=== PATIENT | female | born 1980 ===

== ENCOUNTER 2018-05-11 16:23 | Emergency (ER) | payer SELFPAY ==
[2018-05-11 16:23] VITALS: BMI 36.2
[2018-05-11] MEDS ORDERED: Lidocaine 5% Patch TD STA (16:52)
--- NOTE | 2018-05-11 17:13 | ED PDOC ---
HPI: Back Time Seen by Provider: 05/11/18 16:34 Chief Complaint (Nursing): Lower Extremity Problem/Injury Chief Complaint (Provider): Back pain History Per: Patient History/Exam Limitations: no limitations Onset/Duration Of Symptoms: Days (x8) Current Symptoms Are (Timing): Still Present Quality Of Discomfort: "Pain" Previous Symptoms: None Associated Symptoms: None Additional Complaint(s): Skip Escoto is a 38 year old female, with a past medical history of hypercholesterolemia, HTN and thyroid problems, who presents to the emergency department complaining of a back pain that radiates down the right leg onset for x8 days. Patient states she has difficulty walking due to pain, especially on her right calf and also reports some numbness on her leg. She took Naproxen with no relief of symptoms. She denies doing any heavy lifting, nausea, vomiting, diarrhea, abdominal pain, urinary symptoms, chest pain, shortness of breath, headache, groin numbness or tingling, weakness, trauma or injury. No further medical complaints. No incontinence or constipation. PMD: None provided. Past Medical History Reviewed: Historical Data, Nursing Documentation, Vital Signs Vital Signs: Last Vital Signs Temp 98.6 F 05/11/18 16:28 Pulse 96 H 05/11/18 16:28 Resp 20 05/11/18 16:28 BP 134/90 05/11/18 16:28 Pulse Ox 98 05/11/18 16:28 - Medical History PMH: HTN, Hypercholesterolemia, Hypothyroidism Denies: Chronic Kidney Disease - Surgical History Surgical History: No Surg Hx - Family History Family History: States: Unknown Family Hx - Social History Current smoker - smoking cessation education provided: No Alcohol: Social Drugs: Denies - Immunization History Hx Tetanus Toxoid Vaccination: No Hx Influenza Vaccination: No Hx Pneumococcal Vaccination: No - Home Medications Home Medications: Ambulatory Orders Medication Instructions Recorded Levothyroxine [Levoxyl] 100 mcg PO DAILY 03/02/16 Losartan [Cozaar] 50 mg PO DAILY 01/11/18 Polyethylene Glycol 3350 [Miralax] 17 gm PO DAILY #1 bottle 01/11/18 Diazepam [Valium] 2 mg PO BID PRN #6 tab 05/11/18 Ibuprofen [Motrin] 600 mg PO TID 7 Days tab 05/11/18 Lidocaine 5% [Lidoderm] 1 ea TD DAILY PRN #5 patch 05/11/18 - Allergies Allergies/Adverse Reactions: Allergies Allergy/AdvReac Type Severity Reaction Status Date / Time No Known Allergies Allergy Verified 05/11/18 16:26 Review of Systems ROS Statement: Except As Marked, All Systems Reviewed And Found Negative Constitutional: Negative for: Fever, Chills Cardiovascular: Negative for: Chest Pain Respiratory: Negative for: Shortness of Breath Gastrointestinal: Negative for: Nausea, Vomiting, Diarrhea Genitourinary Female: Negative for: Dysuria, Frequency, Incontinence Musculoskeletal: Positive for: Back Pain (radiates down the right leg), Leg Pain Neurological: Negative for: Weakness, Numbness (groin tingling) Physical Exam - Reviewed Nursing Documentation Reviewed: Yes Vital Signs Reviewed: Yes - Physical Exam Appears: Positive for: No Acute Distress Head Exam: Positive for: ATRAUMATIC, NORMAL INSPECTION, NORMOCEPHALIC Skin: Positive for: Normal Color, Warm, Dry Eye Exam: Positive for: Normal appearance, EOMI, PERRL Neck: Positive for: Normal, Painless ROM, Supple Cardiovascular/Chest: Positive for: Regular Rate, Rhythm. Negative for: Murmur Respiratory: Positive for: Normal Breath Sounds. Negative for: Respiratory Distress Gastrointestinal/Abdominal: Positive for: Normal Exam, Soft. Negative for: Tenderness, Guarding, Rebound Back: Positive for: Other (+ straight leg raise test at 30 R). Negative for: L CVA Tenderness, R CVA Tenderness Rectal: Positive for: Deferred Extremity: Positive for: Normal ROM (upper and lower extremities), Tenderness (R calf). Negative for: Pedal Edema, Deformity, Swelling Neurologic/Psych: Positive for: Alert, Oriented. Negative for: Motor/Sensory Deficits - Laboratory Results Result Diagrams: 05/11/18 21:32 05/11/18 21:32 Lab Results: 18 bun - ECG O2 Sat by Pulse Oximetry: 98 (RA) Pulse Ox Interpretation: Normal - Radiology X-Ray: Interpreted by Me, Viewed By Me X-Ray Interpretation: No Acute Disease - CT Scan/US US Other Rad Studies (CT/US): Read By Radiologist Other Rad Interpretation: no acute - Progress ED Course And Treament: 1957: Stable. AAOx3. Pain still present. Will get ct and blood work. 2239: Stable. AAOx3. Ambulated with no issues. Fu with pcp. No pain. Medical Decision Making Medical Decision Making: Time: 16:34 Initial Impression: Back pain Initial Plan: --Urine --Urine dipstick --Lumbar Spine complete [RAD] --Valium 5 mg PO --Toradol 15 mg IM --Lidoderm 1 ea TD --Duplex Lower Extrm Vein Right [US] --Reevaluation Patient deferred rectal exam stating she has no problems with stool, bladder or bowel incontinence. Duplex Lower Extrm US 20:13 FINDINGS: COMMON FEMORAL VEIN: No thrombotic occlusion. Normal Doppler waveforms. SUPERFICIAL FEMORAL VEIN: No thrombotic occlusion. Normal Doppler waveforms. POPLITEAL VEIN: No thrombotic occlusion. Normal Doppler waveforms. CALF VEINS: No thrombotic occlusion. Normal Doppler waveforms. IMPRESSION: 1. No identification of deep vein thrombosis. 2. Normal right lower extremity venous duplex Doppler ultrasound evaluation. 22:31 Abdomen/Pelvis CT FINDINGS: LUNG BASES: The lung bases appear clear. No pleural effusions are seen. LIVER: Unremarkable. GALLBLADDER AND BILE DUCTS: The gallbladder appears within normal limits. No radioopaque gallstones are seen. No biliary ductal dilatation is evident. PANCREAS: Unremarkable. SPLEEN: Unremarkable. ADRENAL GLANDS: Unremarkable. KIDNEYS, URETERS, AND BLADDER: Punctate non-obstructing calculus is present in the lower pole of the right kidney. STOMACH AND BOWEL: Unremarkable appearance of the stomach and bowel. No evidence of bowel obstruction. No evidence suggesting enteritis or colitis. APPENDIX: No evidence of acute appendicitis on CT examination. PERITONEUM: No free fluid. No free air. LYMPH NODES: No lymphadenopathy is evident. REPRODUCTIVE: Unremarkable as visualized. VASCULATURE: No evidence of abdominal aortic aneurysm. BONES: No aggressive appearing osseous lesion. No acute osseous pathology evident. Broad-based herniated discs at L4-L5 and L5-S1 with biforaminal and canal stenosis. IMPRESSION: Punctate non-obstructing calculus is present in the lower pole of the right kidney. Broad-based herniated discs at L4-L5 and L5-S1 with biforaminal and canal stenosis. Scribe Attestation: Documented by James Linton, acting as a scribe for Randall Sawyer MD Provider Scribe Attestation: All medical record entries made by the Scribe were at my direction and personally dictated by me. I have reviewed the chart and agree that the record accurately reflects my personal performance of the history, physical exam, medi red decision making, and the department course for this patient. I have also personally directed, reviewed, and agree with the discharge instructions and disposition. Disposition - Clinical Impression Clinical Impression: Back pain Counseled Patient/Family Regarding: Studies Performed, Diagnosis, Need For Followup, Rx Given - Disposition Referrals: Abraham Wang MD [Staff Provider] - 05/13/18 [facility] [Outside] - 05/14/18 Disposition: Routine/Home Disposition Time: 20:34 Condition: STABLE Additional Instructions: Return if not better in 3 days. Prescriptions: Diazepam [Valium] 2 mg PO BID PRN #6 tab PRN Reason: Muscle Spasm Ibuprofen [Motrin] 600 mg PO TID 7 Days tab Lidocaine 5% [Lidoderm] 1 ea TD DAILY PRN #5 patch PRN Reason: Pain, Moderate (4-7) Instructions: Low Back Pain (DC) Print Language: SPA
[2018-05-11] MEDS ORDERED: Lidocaine 5% Patch TD ONE (18:04)
[2018-05-11] MEDS ORDERED: Sodium Chloride 0.9% 1,000 ML IV STA (20:41)
[2018-05-11] MEDS ORDERED: Morphine 4 MG/ML VIAL IV ONE (20:41)
[2018-05-11] MEDS ORDERED: Morphine 4 MG/ML VIAL ONE (21:07)
[2018-05-11 22:02] LABS: BASO # 0.1 K/uL (0.0-0.2); BASO % 0.7 % (0.0-2.0); EOS # 0.2 K/uL (0.0-0.7); EOS % 2.5 % (0.0-4.0); HEMOGLOBIN 12.2 g/dL (12.0-16.0); LYMPH # 2.6 K/uL (1.0-4.3); MEAN CELL VOLUME 82.3 fl (81.0-99.0); MEAN CORPUSCULAR HEMOGLOBIN 26.8 pg (27.0-31.0); MEAN CORPUSCULAR HGB CONC 32.5 g/dL (33.0-37.0); MEAN PLATELET VOLUME 8.4 fl (7.2-11.7); MONO # 0.5 K/uL (0.0-0.8); MONO % 6.3 % (0.0-10.0); NEUT # 4.1 K/uL (1.8-7.0); NEUT % 55.5 % (50.0-75.0); RBC 4.56 Mil/uL (3.80-5.20); RED CELL DISTRIBUTION WIDTH 14.9 % (11.5-14.5); WHITE BLOOD COUNT 7.4 K/uL (4.8-10.8)
[2018-05-11 22:16] LABS: ALBUMIN 4.3 g/dL (3.5-5.0); ALT/SGPT 112 U/L (9-52); AST/SGOT 96 U/L (14-36); BLOOD UREA NITROGEN 18 mg/dl (7-17); CALCIUM 9.5 mg/dL (8.4-10.2); GFR NON-AFRICAN AMERICAN > 60
[2018-05-11 23:24] VITALS: BP 132/80; PULSE 84; RESP 16; TEMP 98.2; O2SAT 100
--- NOTE | 2018-05-12 09:04 | US ---
Date of service: 05/11/2018 PROCEDURE: Right lower extremity venous duplex Doppler. HISTORY: r/o dvt COMPARISON: None available. TECHNIQUE: Common femoral, superficial femoral, popliteal and posterior tibial veins were evaluated. Flow was assessed with color Doppler, compressibility, assessment of phasic flow and augmentation response. FINDINGS: COMMON FEMORAL VEIN: Unremarkable. SUPERFICIAL FEMORAL VEIN: Unremarkable. POPLITEAL VEIN: Unremarkable. POSTERIOR TIBIAL VEIN: Unremarkable. OTHER FINDINGS: None. IMPRESSION: No evidence of deep venous thrombosis in the right lower extremity.
--- NOTE | 2018-05-12 09:31 | RAD ---
Date of service: 05/11/2018 PROCEDURE: Radiographs of the Lumbar Spine. HISTORY: back pain COMPARISON: No prior. FINDINGS: BONES: Normal alignment. No listhesis. No fracture. DISC SPACES: Unremarkable. OTHER FINDINGS: None. IMPRESSION: Unremarkable radiographs of the lumbar spine.
--- NOTE | 2018-05-13 10:24 | CT ---
Date of service: 05/11/2018 PROCEDURE: CT Abdomen and Pelvis without intravenous contrast HISTORY: R/O stone; back pain lumbar COMPARISON: None. TECHNIQUE: Contiguous images were obtained from the domes of the diaphragms to the upper thighs without the administration of intravenous contrast. Oral contrast was not administered. Radiation dose: Total exam DLP = 893.84 mGy-cm. This CT exam was performed using one or more of the following dose reduction techniques: Automated exposure control, adjustment of the mA and/or kV according to patient size, and/or use of iterative reconstruction technique. FINDINGS: LOWER THORAX: Right middle lobe calcified granuloma. Cardiomegaly.. LIVER: Unremarkable. No gross lesion or ductal dilatation. GALLBLADDER AND BILE DUCTS: Unremarkable. PANCREAS: Unremarkable. No gross lesion or ductal dilatation. SPLEEN: Unremarkable. ADRENALS: Unremarkable. No mass. KIDNEYS AND URETERS: Punctate nonobstructive right-sided nephrolithiasis. No hydronephrosis. No solid mass. VASCULATURE: Unremarkable. No aortic aneurysm. No aortic atherosclerotic calcification or mural plaque present. BOWEL: Mild colonic diverticulosis. No obstruction. No gross mural thickening. APPENDIX: Unremarkable. Normal appendix. PERITONEUM: Unremarkable. No free fluid. No free air. LYMPH NODES: Unremarkable. No enlarged lymph nodes. BLADDER: Unremarkable. REPRODUCTIVE: Prominent right ovary. BONES: Broad-based disc herniation is with moderate to severe spinal canal stenosis at L4-5 and L5-S1. No acute fracture. OTHER FINDINGS: None. IMPRESSION: Punctate nonobstructive right-sided nephrolithiasis. No obstructive uropathy or evidence of recently passed genitourinary calculus. Prominent right ovary. Pelvic ultrasound can be obtained for further evaluation as clinically warranted. L4-5 and L5-S1 disc herniations with spinal canal stenosis.
== END 2018-05-11 23:24 | disposition home or self-care (01) ==
LOC: H.ER 16:23
DX: M51.26 Other intervertebral disc displacement, lumbar region (principal); M51.27 Other intervertebral disc displacement, lumbosacral region; M48.061 Spinal stenosis, lumbar region without neurogenic claudication; E03.9 Hypothyroidism, unspecified; E78.00 Pure hypercholesterolemia, unspecified; I10 Essential (primary) hypertension; N20.0 Calculus of kidney
CPT/HCPCS: 72114; 74176; 80053; 81025; 85025; 93971; 96372; 99284; J1885; J2270; J7030